=== PATIENT | female | born 1970 | race Caucasian/White ===

== ENCOUNTER 2018-12-25 14:50 | Emergency (ER) | payer BC ==
[2018-12-25 15:37] VITALS: BP 138/61
--- NOTE | 2018-12-25 15:53 | UC ---
Hand/Wrist HPI - HPI Summary HPI Summary: 48 yo female injured her right distal forearm hours ago hit on door frame bearable at rest but severe pain with movement hurts with flexion and extension of wrist skin was broken Td up to date no relief with motrin pain radiates up to elbow - History Of Current Complaint Chief Complaint: UCWounds Stated Complaint: RT ARM INJURY Time Seen by Provider: 12/25/18 15:28 Hx Obtained From: Patient Hx Last Menstrual Period: 2009 approximatly Onset/Duration: Sudden Onset Severity Initially: Moderate Severity Currently: Moderate Pain Intensity: 5 - 10 with movement Pain Scale Used: 0-10 Numeric Character Of Pain: Sharp, Aching, Throbbing Aggravating Factor(s): Movement Alleviating Factor(s): Rest Associated Signs And Symptoms: Positive: Swelling Related History: Dominant Hand Right - Allergies/Home Medications Allergies/Adverse Reactions: Allergies Allergy/AdvReac Type Severity Reaction Status Date / Time seasonal Allergy Congestion Uncoded 12/25/18 15:37 Home Medications: Home Medications clonazePAM TAB(*) [Klonopin TAB(*)] 1 mg PO DAILY PRN 12/25/18 [History Confirmed 12/25/18] PMH/Surg Hx/FS Hx/Imm Hx Previously Healthy: Yes - Surgical History Surgical History: Yes Surgery Procedure, Year, and Place: DEVIATED SEPTUM X 2--2001. CHOLECYSTECTOMY. HYSTERECTOMY. EYE SX X 2 A CHILD - Family History Known Family History: Positive: Hypertension - Social History Alcohol Use: Rare Substance Use Type: None Smoking Status (MU): Light Every Day Tobacco Smoker Length of Time of Smoking/Using Tobacco: 30 years Review of Systems All Other Systems Reviewed And Are Negative: Yes Constitutional: Positive: Negative Skin: Positive: Negative Eyes: Positive: Negative ENT: Positive: Negative Respiratory: Positive: Negative Cardiovascular: Positive: Negative Gastrointestinal: Positive: Negative Genitourinary: Positive: Negative Motor: Positive: Negative Neurovascular: Positive: Negative Musculoskeletal: Positive: Negative Neurological: Positive: Negative Psychological: Positive: Negative Physical Exam Triage Information Reviewed: Yes Appearance: Well-Appearing, No Pain Distress, Well-Nourished Vital Signs: Initial Vital Signs Temp 98.6 F 12/25/18 15:27 Pulse 53 12/25/18 15:27 Resp 18 12/25/18 15:27 BP 138/61 12/25/18 15:27 Pulse Ox 97 12/25/18 15:27 Vital Signs Reviewed: Yes Eyes: Positive: Conjunctiva Clear ENT: Positive: Hearing grossly normal. Negative: Nasal congestion, Nasal drainage, Trismus, Muffled voice, Hoarse voice Dental Exam: Normal Neck: Positive: Supple, Nontender, No Lymphadenopathy Respiratory: Positive: Lungs clear, Normal breath sounds, No respiratory distress, No accessory muscle use Cardiovascular: Positive: RRR, No Murmur Musculoskeletal: Positive: Other: - see image Neurological: Positive: Alert Psychological Exam: Normal Skin Exam: Other - see image Images Front/Back of Body, Lg ([place]): 1 - abrasion/swelling Diagnostics - Radiology No standard instances Radiology Interpretation Completed By: Radiologist Summary of Radiographic Findings: no fx or fb Hand/Wrist Course/Dx - Differential Dx/Diagnosis Provider Diagnosis: Abrasion of right forearm, Contusion of right forearm, Elevated BP without diagnosis of hypertension Discharge ED - Sign-Out/Discharge Documenting (check all that apply): Patient Departure All imaging exams completed and their final reports reviewed: Yes - Discharge Plan Condition: Stable Disposition: HOME Patient Education Materials: Contusion in Adults (ED), Abrasion (ED) Referrals: Samanta GOLDMAN,Abdiaziz Bundy [Primary Care Provider] - 2 Weeks Additional Instructions: splint elevate ice recheck for new or worsening symptoms - Billing Disposition and Condition Condition: STABLE Disposition: Home
== END 2018-12-25 16:36 | disposition home or self-care (01) ==
LOC: UCCORT 14:50
DX: S50.811A Abrasion of right forearm, initial encounter (principal); W22.09XA Striking against other stationary object, initial encounter; Y92.9 Unspecified place or not applicable; F17.290 Nicotine dependence, other tobacco product, uncomplicated; R03.0 Elevated blood-pressure reading, without diagnosis of hypertension
CPT/HCPCS: 99202; G0463